=== PATIENT | male | born 1960 | race Caucasian/White ===

== ENCOUNTER 2017-12-05 04:12 | Emergency (ER) | payer OTHER ==
[~2017-12-05] VITALS: Ht 177.8 cm; Wt 93.0 kg
--- NOTE | 2017-12-05 04:22 | ED GI/GU/ABDOMINAL COMPLAINT ---
See Addendum History of Present Illness General Chief Complaint: Abdominal Pain/Flank Pain Stated Complaint: LEFT FLANK PAIN Source: patient Exam Limitations: no limitations Vital Signs & Intake/Output Vital Signs & Intake/Output Vital Signs Date Time Temp Pulse Resp B/P B/P Pulse O2 O2 Flow FiO2 Mean Ox Delivery Rate 12/05 0748 98.1 53 18 135/64 100 Room Air Room Air 12/05 0520 97.6 12/05 0434 97 Room Air 12/05 0431 97.6 84 18 154/67 97 Room Air Allergies Coded Allergies: No Known Allergies (12/05/17) Triage Nurses Notes Reviewed? yes Onset: Gradual Duration: day(s): Timing: recent history Quality/Severity: cramping Prior Abdominal Problems: similar symptoms Modifying Factors: Worsens With: vomiting. Associated Symptoms: abdominal pain, nausea/vomiting HPI: 57 yo gentleman h/o renal colic presents with left flank pain at mid abdomen that began last night and worsened early this morning, associated with nausea, without dysuria, fever, chills, chest pain, palpitations. He is other osuna well. (Jyothi BUSTILLOS,Nawaf Art) Reconcile Medications Ibuprofen 800 MG TABLET 1 TAB PO TID PRN pain Ondansetron (Zofran Odt) 4 MG TAB.RAPDIS 1 TAB SL TID PRN nausea Oxycodone HCl/Acetaminophen (Percocet 5-325 MG Tablet) 5 MG-325 MG TABLET 1 TAB PO 4XDP PRN PAIN TEN...[id number] (Lili BUSTILLOS,Max Aranda) Past History Medical History Any Pertinent Medical History? see below for history Renal: nephrolithiasis Surgical History Surgical History: none Psychosocial History What is your primary language [place] Family History Hx Contributory? No (Nawaf Roe MD) Review of Systems Review of Systems Constitutional: Reports: no symptoms. EENTM: Reports: no symptoms. Respiratory: Reports: no symptoms. Cardiovascular: Reports: no symptoms. GI: Reports: no symptoms. Genitourinary: Reports: no symptoms. Musculoskeletal: Reports: no symptoms. Skin: Reports: no symptoms. Neurological/Psychological: Reports: no symptoms. Hematologic/Endocrine: Reports: no symptoms. Immunologic/Allergic: Reports: no symptoms. All Other Systems: Reviewed and Negative (Nawaf Roe MD) Physical Exam Physical Exam General Appearance: mild distress, see below Gastrointestinal: normal bowel sounds, soft, non-tender Comments: Physical Exam Physical Exam General Appearance: well developed/nourished, no apparent distress Head: atraumatic, normal appearance Eyes: Bilateral: normal appearance. Ears, Nose, Throat: normal pharynx, normal ENT inspection Neck: normal inspection, supple, full range of motion Respiratory: normal breath sounds, chest non-tender, no respiratory distress, quiet respiration, lungs clear Cardiovascular: regular rate/rhythm Gastrointestinal: normal bowel sounds, soft, non-tender, no organomegaly Back: normal inspection, normal range of motion Extremities: normal inspection, normal capillary refill, normal range of motion, no edema Neurologic/Psych: no motor/sensory deficits, awake, alert, oriented x 3 Skin: intact, normal color, warm/dry Core Measures ACS in differential dx? No Sepsis Present: No Sepsis Focused Exam Completed? No (Jyothi BUSTILLOS,Nawaf Art) Progress Differential Diagnosis: uti vs renal colic vs other. Plan of Care: Orders Procedure Date/time Status EKG 12/05 626 Active URINALYSIS 12/05 432 Complete TROPONIN LEVEL 12/05 416 Complete LIPASE 12/05 416 Complete LACTIC ACID 12/05 416 Complete HEPATIC FUNCTION PANEL 12/05 416 Complete CBC WITHOUT DIFFERENTIAL 12/05 416 Complete BASIC METABOLIC PANEL 12/05 416 Complete AMYLASE 12/05 416 Complete EKG 12/05 416 Active Laboratory Tests 12/05/17 0756: Urine Color YEL, Urine Clarity CLEAR, Urine pH 6.0, Ur Specific [place] >= 1.030 , Urine Protein NEG, Urine Ketones NEG, Urine Nitrite NEG, Urine Bilirubin NEG, Urine Urobilinogen 0.2, Ur Leukocyte Esterase NEG, Ur Microscopic SEDIMENT EXAMINED, Urine RBC 1-3, Urine WBC RARE, Ur Epithelial Cells FEW, Urine Bacteria FEW H, Hyaline Casts 1-3 H, Urine Mucus FEW, Urine Hemoglobin TRACE-INTACT H, Urine Glucose NEG 12/05/17 0512: Anion Gap 8, Estimated GFR 49 L, BUN/Creatinine Ratio 13.3, Glucose 101 H, Lactic Acid 0.9, Calcium 9.1, Total Bilirubin 1.5 H, Direct Bilirubin 0.2, AST 16 L, ALT 25, Alkaline Phosphatase 37, Troponin I < 0.01, Total Protein 6.0 L, Albumin 3.5, Amylase 79, Lipase 292, CBC w Diff NO MAN DIFF REQ, RBC 4.99, MCV 80.3, MCH 27.5, MCHC 34.2, RDW 13.7, MPV 8.2, Gran % 71.9, Lymphocytes % 18.6 L , Monocytes % 6.7, Eosinophils % 2.5, Basophils % 0.3, Absolute Granulocytes 5.0 , Absolute Lymphocytes 1.3, Absolute Monocytes 0.5, Absolute Eosinophils 0.2, Absolute Basophils 0 Diagnostic Imaging: Viewed by Me: CT Scan. Discussed w/RAD: CT Scan. Radiology Impression: PATIENT: NORMAN GRACE PRESENT AGE: 57 PATIENT ACCOUNT NO: [id number] : 62 LOCATION: [facility] ORDERING PHYSICIAN: Nawaf Roe MD SERVICE DATE: 12/05/17 EXAM TYPE: CAT - CT ABD & PELVIS W/O IV CONTRAS EXAMINATION: CT ABDOMEN AND PELVIS WITHOUT CONTRAST CLINICAL INFORMATION: Left flank pain COMPARISON: 05/28/2010 TECHNIQUE: Multidetector volumetric imaging was performed from the superior aspect of the liver through the pubic symphysis. Sagittal and coronal reformatted images were obtained on the technologist's workstation. DLP: 506.66 mGy-cm FINDINGS: LUNG BASES: The visualized lung bases are unremarkable. Trace left pleural effusion. LIVER, GALLBLADDER, AND BILIARY TREE: The liver is normal in size, shape, and attenuation. No focal hepatic lesion or biliary ductal dilatation is present. Patient is status post cholecystectomy. PANCREAS: Unremarkable. SPLEEN: Unremarkable. ADRENAL GLANDS: Unremarkable. KIDNEYS AND URETERS: There is mild left hydroureteronephrosis with a 2 mm calculus at or just beyond the left ureterovesicular junction. Perinephric stranding is greater on the left compared to the right. A previously identified hypodense left renal lesion is not discernible on the current noncontrast exam. No right-sided calculus or hydronephrosis. BLADDER: Mildly distended. As noted above, there is a 2 mm calculus at or just beyond the left ureterovesicular junction. GASTROINTESTINAL TRACT: There is a rounded, low-density structure along the distal esophagus measuring approximately 2.8 x 2.1 cm; a similar appearing abnormality was noted in this region on 05/27/2010 though the current finding appears slightly increased in size. No evidence of bowel obstruction. No abnormal bowel wall thickening or pericolonic inflammation is identified. The appendix is unremarkable. No free fluid or free air is seen. ABDOMINAL WALL: No significant hernia is appreciated. LYMPH NODES: Normal. VASCULAR: Mild scattered vascular calcification is noted. PELVIC VISCERA: Unremarkable. OSSEOUS STRUCTURES: There are degenerative changes of the lower lumbar spine. IMPRESSION: 1. Mild left hydroureteronephrosis with a 2 mm calculus at or just beyond the left ureterovesicular junction. 2. Round low-density structure along the distal esophagus measuring approximately 2.8 x 2.1 cm, suspected to be slightly increased in size from 05/27/2010. 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 DICTATED BY: Jose Reyes MD DATE/TIME DICTATED: 12/05/17506 PARQUETRY FLOOR LAYER:GURDEEP DATE/TIME TRANSCRIBED:12/05/17506 CONFIDENTIAL, DO NOT COPY WITHOUT APPROPRIATE AUTHORIZATION. <Electronically signed in Other Vendor System> SIGNED BY: Jose Reyes MD 12/05/17 0523 Initial ED EKG: VENTRICULAR BIGEMINY Repeat EKG: unchanged (Jyothi BUSTILLOS,Nawaf Art) Comments: 12/05/2017 9:07:25 AM patient signed out to me by Dr. Roe at shift change advisor. I have discussed the patient's EKG changes with his bioinformatics technician, Dr. Rivera, who feels that this is a stable rhythm and can be managed as an outpatient. (Lili BUSTILLOS,Max Aranda) Departure Departure Disposition: HOME OR SELF CARE Condition: Stable Referrals: Whitley BUSTILLOS,Donna (PCP/Family) Departure Forms: Customer Survey General Discharge Information Comments 12/05/17, 7:47am... pt signed out to dr. pearson, u/a pending ekg shows bigeminy x 2... call placed to cardiology... dr. pearson to follow up. (Jyothi BUSTILLOS,Nawaf Art) Departure Clinical Impression Primary Impression: Renal colic Secondary Impressions: Bigeminal rhythm, Kidney stone Additional Instructions: Follow-up with a urologist (such as Dr. Patel) for your kidney stone. Follow- up with Dr. Rivera regarding your bigeminy. Take the prescribed medications. Return if any concerns or sudden worsening. Please note that there might be incidental findings in your evaluation that are unrelated to the current emergency department visit. Please notify your primary care doctor about this emergency department visit in order to obtain and review all of the testing performed so that these incidental findings can be monitored as needed. If you had an x-ray performed, please understand that some fractures or other findings may not be seen on the initial set of x-rays. If your symptoms persist you might need a repeat set of x-rays to check for such a fracture. If you had a laceration evaluated, please understand that foreign bodies such as glass or wood may not be visible to the naked eye or on plain x-rays. If the wound becomes red, swollen, increasingly more painful or if there is any drainage from the wound, please have it reevaluated by a physician for the possibility of a retained foreign body. If you're unable to follow up as outlined in the discharge instructions please return to the emergency department. Thank you for choosing the [facility] Emergency Department for your care. It was a pleasure to serve you today. Max Pearson M.D. [facility] Prescriptions: Current Visit Scripts Ibuprofen 1 TAB PO TID PRN pain #30 TAB Ondansetron (Zofran Odt) 1 TAB SL TID PRN nausea #10 TAB Oxycodone HCl/Acetaminophen (Percocet 5-325 MG Tablet) 1 TAB PO 4XDP PRN PAIN #10 TAB TEN...[id number] (Lili BUSTILLOS,Max Aranda) Critical Care Note Critical Care Note Critical Care Time: 30-74 min (Lili BUSTILLOS,Max Aranda)
[2017-12-05 05:19] LABS: ABSOLUTE BASOPHIL COUNT 0 /CUMM (0.0-0.2); ABSOLUTE EOSINOPHIL COUNT 0.2 /CUMM (0.0-0.7); ABSOLUTE LYMPH COUNT 1.3 /CUMM (1.2-3.4); ABSOLUTE MONOCYTE COUNT 0.5 /CUMM (0.10-0.60); BASOPHIL % 0.3 % (0.0-2.0); EOSINOPHIL % 2.5 % (0-5); GRANULOCYTE % 71.9 % (42.2-75.2); HEMATOCRIT 40.1 % (42-52); MEAN CORPUSCULAR HGB 27.5 PG (27.0-31.0); MEAN CORPUSCULAR HGB CONC 34.2 G/DL (33.0-37.0); MEAN CORPUSCULAR VOLUME 80.3 FL (80.0-94.0); MEAN PLATELET VOLUME 8.2 FL (7.4-10.4); PLATELET COUNT 182 /CUMM (130-400); RBC DISTRIBUTION WIDTH 13.7 % (11.5-14.5); RED BLOOD CELL CT 4.99 /CUMM (4.70-6.10)
--- NOTE | 2017-12-05 05:23 | CT SCAN REPORT ---
EXAMINATION: CT ABDOMEN AND PELVIS WITHOUT CONTRAST CLINICAL INFORMATION: Left flank pain COMPARISON: 05/28/2010 TECHNIQUE: Multidetector volumetric imaging was performed from the superior aspect of the liver through the pubic symphysis. Sagittal and coronal reformatted images were obtained on the technologist's workstation. DLP: 506.66 mGy-cm FINDINGS: LUNG BASES: The visualized lung bases are unremarkable. Trace left pleural effusion. LIVER, GALLBLADDER, AND BILIARY TREE: The liver is normal in size, shape, and attenuation. No focal hepatic lesion or biliary ductal dilatation is present. Patient is status post cholecystectomy. PANCREAS: Unremarkable. SPLEEN: Unremarkable. ADRENAL GLANDS: Unremarkable. KIDNEYS AND URETERS: There is mild left hydroureteronephrosis with a 2 mm calculus at or just beyond the left ureterovesicular junction. Perinephric stranding is greater on the left compared to the right. A previously identified hypodense left renal lesion is not discernible on the current noncontrast exam. No right-sided calculus or hydronephrosis. BLADDER: Mildly distended. As noted above, there is a 2 mm calculus at or just beyond the left ureterovesicular junction. GASTROINTESTINAL TRACT: There is a rounded, low-density structure along the distal esophagus measuring approximately 2.8 x 2.1 cm; a similar appearing abnormality was noted in this region on 05/27/2010 though the current finding appears slightly increased in size. No evidence of bowel obstruction. No abnormal bowel wall thickening or pericolonic inflammation is identified. The appendix is unremarkable. No free fluid or free air is seen. ABDOMINAL WALL: No significant hernia is appreciated. LYMPH NODES: Normal. VASCULAR: Mild scattered vascular calcification is noted. PELVIC VISCERA: Unremarkable. OSSEOUS STRUCTURES: There are degenerative changes of the lower lumbar spine. IMPRESSION: 1. Mild left hydroureteronephrosis with a 2 mm calculus at or just beyond the left ureterovesicular junction. 2. Round low-density structure along the distal esophagus measuring approximately 2.8 x 2.1 cm, suspected to be slightly increased in size from 05/27/2010. 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
[2017-12-05] MEDS ORDERED: IBUPROFEN800 M1 PO ×2 (07:35→07:53)
[2017-12-05] MEDS ORDERED: ZOFRAN ODT4 M1 SL ×2 (07:35→07:53)
[2017-12-05] MEDS ORDERED: PERCOCET 5-3251 EACH PO ×2 (07:35→07:53)
[2017-12-05] MEDS ORDERED: FLOMAX0.4 M1 PO ×2 (07:35→07:53)
[2017-12-05 09:23] VITALS: BP 140/74
== END 2017-12-05 09:25 ==
LOC: ERH 04:12
PROVIDERS: Pediatrics
DX: N23 Unspecified renal colic (principal); R00.8 Other abnormalities of heart beat; N20.0 Calculus of kidney
CPT/HCPCS: 74176; 81001; 93005; 93010; 96361; 96374; 96375; 99291; J0131; J1885